=== PATIENT | female | born 1995 | race American Indian/Alaskan Native ===

== ENCOUNTER 2021-05-20 09:28 | Emergency (ER) | payer MEDICAID ==
[2021-05-20 09:57] VITALS: BP 112/76
--- NOTE | 2021-05-20 12:46 | Emergency Department Report ---
ED Extremity Problem HPI - General Chief complaint: Neuro Symptoms/Deficit Stated complaint: PAIN/NUMBNESS IN LEFT LEG Time Seen by Provider: 05/20/21 12:35 Source: patient Mode of arrival: Ambulatory Limitations: No Limitations - History of Present Illness Initial comments: 26-year-old female who denies any significant past medical history presents to the ER today with complaints of pain to her left lower leg. Patient states that she has been having intermittent pain and intermittent numbness and tingling from her left knee down to her feet. She states that been going on for a few months but seems to be coming more frequently. She also states that she has been having intermittent pain in her lower back for the past few months. She denies any injury or strenuous activity. She states that she mainly sits while working. She states that she has seen some swelling in her left lower leg intermittently, but has been a few days since she seen any. She denies any redness, bruising, chest pain or shortness of breath. She denies any bowel or bladder incontinence, UTI symptoms, Saddle anesthesia. She denies any fever or chills. She does use control, but denies any other risk factors for DVT/PE. She denies any history of PE or DVT in the past. She denies any illicit drug use. MD Complaint: extremity pain -: month(s) (2-3) - Related Data Previous Rx's Medication Instructions Recorded Last Taken Type Ibuprofen [Motrin] 600 mg PO Q8H PRN #30 tablet 05/20/21 Unknown Rx Allergies Allergy/AdvReac Type Severity Reaction Status Date / Time No Known Allergies Allergy Unverified 05/20/21 09:51 ED Review of Systems ROS: Stated complaint: PAIN/NUMBNESS IN LEFT LEG Other details as noted in HPI Comment: All other systems reviewed and negative Constitutional: denies: chills, fever Eyes: denies: eye discharge, vision change ENT: denies: ear pain, throat pain, dental pain, hearing loss, epistaxis, congestion Respiratory: denies: cough, shortness of breath, wheezing Cardiovascular: denies: chest pain, palpitations Endocrine: no symptoms reported Gastrointestinal: denies: abdominal pain, nausea, vomiting, diarrhea, constipation, hematemesis, melena, hematochezia Genitourinary: denies: urgency, dysuria, discharge Musculoskeletal: back pain, arthralgia, myalgia Skin: denies: rash, lesions Neurological: numbness, paresthesias. denies: confusion, abnormal gait, vertigo Psychiatric: denies: anxiety, depression, auditory hallucinations, visual hallucinations, homicidal thoughts, suicidal thoughts Hematological/Lymphatic: denies: easy bleeding, easy bruising, swollen glands ED Past Medical Hx - Past Medical History Previous Medical History?: No - Surgical History Past Surgical History?: No - Medications Home Medications: Home Medications Medication Instructions Recorded Confirmed Last Taken Type Ibuprofen [Motrin] 600 mg PO Q8H PRN #30 tablet 05/20/21 Unknown Rx ED Physical Exam - General Limitations: No Limitations General appearance: alert, in no apparent distress - Head Head exam: Present: atraumatic, normocephalic, normal inspection - Eye Eye exam: Present: normal appearance, PERRL, EOMI Pupils: Present: normal accommodation - Neck Neck exam: Present: normal inspection, full ROM - Respiratory Respiratory exam: Present: normal lung sounds bilaterally. Absent: respiratory distress, wheezes, rales, rhonchi - Cardiovascular Cardiovascular Exam: Present: regular rate, normal rhythm, normal heart sounds - GI/Abdominal GI/Abdominal exam: Present: soft. Absent: distended, tenderness, guarding, rebound - Extremities Exam Extremities exam: Present: normal inspection, full ROM, normal capillary refill, calf tenderness (Mild left). Absent: pedal edema, joint swelling - Back Exam Back exam: Present: normal inspection, full ROM, paraspinal tenderness (Bilateral paraspinal tenderness, mild, lower lumbar area) - Neurological Exam Neurological exam: Present: alert, oriented X3, CN II-XII intact, normal gait - Psychiatric Psychiatric exam: Present: normal affect, normal mood - Skin Skin exam: Present: intact ED Course Vital Signs 05/20/21 09:56 Temperature 98.4 F Pulse Rate 88 Respiratory 20 Rate Blood Pressure 112/76 O2 Sat by Pulse 100 Oximetry ED Medical Decision Making - Radiology Data Radiology results: report reviewed - Medical Decision Making Venous Doppler left lower extremity negative for DVT. Patient history and symptoms seems to be concerning for possible sciatica. Patient is well-appearing, nontoxic and not in any acute distress. She is neurologically intact with a normal gait. Her physical exam does not suggest epidural abscess, cauda equina, acute arterial occlusion, cellulitis, septic joint or any other emergent conditions warranting any additional testing, transfer, admission or specialist consult at this time. Discussed imaging results, suspected diagnosis and treatment plan with patient. She will be given referral to orthospine specialist for MRI. Patient expressed understanding of instructions and agree with plan. Patient stable at time of discharge. Critical care attestation.: If time is entered above; I have spent that time in minutes in the direct care of this critically ill patient, excluding procedure time. ED Disposition Clinical Impression: Left leg pain, Sciatica of left side Disposition: HOME / SELF CARE / HOMELESS Is pt being admited?: No Does the pt Need Aspirin: No Condition: Stable Instructions: Sciatica, [id number], Leg Cramps Additional Instructions: Recommend taking ibuprofen as prescribed to help with pain. Most importantly I do recommend following up with the orthospine specialist and or your primary care doctor for further evaluation including MRI of your lower back to rule out herniated disc. Return to the ER if your symptoms changes or worsens in any way. Prescriptions: Ibuprofen [Motrin] 600 mg PO Q8H PRN #30 tablet PRN Reason: Pain Referrals: KRISTAL MARMOLEJO MD [Staff Physician] - 3-5 Days [facility] [Provider Group] - 3-5 Days Forms: Work/School Release Form(ED) Time of Disposition: 13:44
--- NOTE | 2021-05-20 13:31 | Vascular Lab Report ---
DUPLEX DOPPLER LOWER EXTREMITY VEINS, LEFT INDICATION / CLINICAL INFORMATION: Left leg pain. TECHNIQUE: Duplex doppler imaging was performed through the veins of the left lower extremity using venous compr ession and other maneuvers. COMPARISON: None available. FINDINGS: LEFT COMMON FEMORAL VEIN: Negative. LEFT FEMORAL VEIN: Negative. LEFT POPLITEAL VEIN: Negative. LEFT CALF VEINS: Negative. ADDITIONAL FINDINGS: None. IMPRESSION: 1. No sonographic evidence for DVT in the left lower extremity. Signer Name: Fabio Martinez MD Signed: 05/20/2021 1:27 PM Workstation Name: [id number]
== END 2021-05-20 13:57 | disposition home or self-care (01) ==
LOC: ED 09:28
DX: M79.605 Pain in left leg (principal); M54.32 Sciatica, left side
CPT/HCPCS: 99283

== ENCOUNTER 2021-12-26 13:15 | Emergency (ER) | payer MEDICAID ==
[2021-12-26 14:33] VITALS: BP 129/65
[2021-12-26] MEDS ORDERED: hydrOXYzine PAMOATE 25 MG CAP PO ONE (14:34)
[2021-12-26] MEDS ORDERED: predniSONE 20 MG TAB PO ONE (14:34)
--- NOTE | 2021-12-26 14:38 | Emergency Department Report ---
- General Chief complaint: Skin Rash Stated complaint: SPIDER BITE Time Seen by Provider: 12/26/21 14:33 Source: patient Mode of arrival: Ambulatory Limitations: No Limitations - History of Present Illness Initial comments: 26-year-old black female with no past medical history presents emergency department for evaluation of insect bite to her abdomen. She states that when she was outside a couple of days ago, a spider bit her in her abdomen area. She states that she has had the redness itching and burning to the area since then. She denies fever and purulent drainage. complaint: insect bite/sting -: Sudden, days(s) (2) Location: chest (Upper abdominal area only.) Severity scale (0 -10): 0 Quality: burning Associated symptoms: itching Treatments Prior to Arrival: none - Related Data Previous Rx's Medication Instructions Recorded Last Taken Type Ibuprofen [Motrin] 600 mg PO Q8H PRN #30 tablet 05/20/21 Unknown Rx Allergies Allergy/AdvReac Type Severity Reaction Status Date / Time No Known Allergies Allergy Unverified 05/20/21 09:51 Abscess Boil HPI - HPI Chief Complaint: Skin Rash Stated Complaint: SPIDER BITE Time Seen by Provider: 12/26/21 14:33 Duration: 2 Days Location: Abdomen Severity: None History: Yes Insect Bite, No Fever, No Pain, No Purulent Drainage, No Numbness, No Foreign Body, No Previous History Home Medications: Previous Rx's Medication Instructions Recorded Last Taken Type Ibuprofen [Motrin] 600 mg PO Q8H PRN #30 tablet 05/20/21 Unknown Rx Allergies/Adverse Reactions: Allergies Allergy/AdvReac Type Severity Reaction Status Date / Time No Known Allergies Allergy Unverified 05/20/21 09:51 ED Review of Systems ROS: Stated complaint: SPIDER BITE Other details as noted in HPI Comment: All other systems reviewed and negative Constitutional: denies: chills, fever Respiratory: denies: shortness of breath Cardiovascular: denies: chest pain, palpitations Gastrointestinal: denies: abdominal pain, nausea, vomiting Skin: rash Neurological: denies: headache, weakness ED Past Medical Hx - Medications Home Medications: Home Medications Medication Instructions Recorded Confirmed Last Taken Type Ibuprofen [Motrin] 600 mg PO Q8H PRN #30 tablet 05/20/21 Unknown Rx ED Physical Exam - General Limitations: No Limitations General appearance: alert, in no apparent distress - Head Head exam: Present: atraumatic, normocephalic - Eye Eye exam: Present: normal appearance. Absent: scleral icterus, conjunctival injection, periorbital swelling, periorbital tenderness - ENT ENT exam: Present: normal exam - Neck Neck exam: Present: normal inspection. Absent: lymphadenopathy - Respiratory Respiratory exam: Present: normal lung sounds bilaterally. Absent: respiratory distress, wheezes, rales, rhonchi, stridor, chest wall tenderness - Cardiovascular Cardiovascular Exam: Present: regular rate, normal heart sounds - GI/Abdominal GI/Abdominal exam: Present: soft, normal bowel sounds. Absent: distended, tenderness, guarding, rebound, rigid - Extremities Exam Extremities exam: Present: normal inspection, normal capillary refill. Absent: pedal edema, joint swelling - Back Exam Back exam: Present: normal inspection. Absent: CVA tenderness (R), CVA tenderness (L) - Neurological Exam Neurological exam: Present: alert, oriented X3, CN II-XII intact, normal gait - Psychiatric Psychiatric exam: Present: normal affect, normal mood - Skin Skin exam: Present: warm, dry, intact, normal color - Expanded Skin Exam Expanded Type of lesion: Present: rash Distribution of rash: abdomen Description of rash: Present: size (1-2 cm), erythematous 1 - Small, erythematous, pruritis area that resembles an insect bite. ED Course Vital Signs 12/26/21 14:31 Temperature 97.9 F Pulse Rate 91 H Respiratory 14 Rate Blood Pressure 129/65 [Right] O2 Sat by Pulse 99 Oximetry ED Medical Decision Making - Medical Decision Making 26-year-old black female with no past medical history presents emergency d epartment for evaluation of insect bite to her abdomen. She states that when she was outside a couple of days ago, a spider bit her in her abdomen area. She states that she has had the redness itching and burning to the area since then. She denies fever and purulent drainage. Noted to have a 2 cm in diameter area of redness to the abdomen with the center resembling an insect bite. No purulent drainage noted, but area noted to be area running per patient. Patient will be treated with one-time dose of prednisone and Vistaril then discharged home and advised to use [id number] Benadryl and topical. She is advised to return to the emergency department or follow-up with her primary care provider if no improvement or worsening symptoms or if she develops fever. She verbalizes understanding of and agreement with plan of care. Critical care attestation.: If time is entered above; I have spent that time in minutes in the direct care of this critically ill patient, excluding procedure time. ED Disposition Clinical Impression: Insect bite Qualifiers: Encounter type: initial encounter Site of insect bite: abdominal wall Qualified Code(s): S30.861A - Insect bite (nonvenomous) of abdominal wall, initial encounter Disposition: 01 HOME / SELF CARE / HOMELESS Is pt being admited?: No Does the pt Need Aspirin: No Condition: Stable Instructions: Insect Bite, Adult, [id number], Brown Recluse Spider Bite Additional Instructions: Use over the counter benadryl and ibuprofen as needed for itching and pain. Follow up with pcp if no improvement or worsening symptoms. Referrals: KRISTAL MARMOLEJO MD [Primary Care Provider] - 3-5 Days Forms: Work/School Release Form(ED) Time of Disposition: 14:38
== END 2021-12-26 17:03 | disposition home or self-care (01) ==
LOC: ED 13:15
DX: S30.861A Insect bite (nonvenomous) of abdominal wall, initial encounter (principal); W57.XXXA Bitten or stung by nonvenomous insect and other nonvenomous arthropods, initial encounter; Y93.89 Activity, other specified; Y92.89 Other specified places as the place of occurrence of the external cause; Y99.8 Other external cause status
CPT/HCPCS: 99282